=== PATIENT | male | born 1975 | race Caucasian/White ===

== ENCOUNTER 2023-05-25 11:36 | Day surgery (SDC) | payer OTHER ==
[2023-05-19 15:01] VITALS: BMI 37.3
[2023-05-25] MEDS ORDERED: Midazolam HCl 2 mg/2 ml Vial ONE (12:44)
[2023-05-25] MEDS ORDERED: fentaNYL 50 mcg/mL 1 mL Vial ONE (12:44)
[2023-05-25] MEDS ORDERED: Lidocaine 1% PF 5 ML VIAL ONE (13:15)
[2023-05-25] MEDS ORDERED: Ondansetron PF 4 MG/2 ML Vial ONE (13:15)
[2023-05-25] MEDS ORDERED: PROPOFOL 200 MG/20 ML VIAL ONE (13:15)
[2023-05-25] MEDS ORDERED: Dexamethasone 20 MG/5 ML VIAL ONE (13:15)
== END 2023-05-25 15:24 | disposition home or self-care (01) ==
LOC: MRI 11:36
PROVIDERS: ATTEND Orthopaedic Surgery
DX: M54.16 Radiculopathy, lumbar region (principal)
CPT/HCPCS: 72148; J1100; J2250; J2405; J2704; J3010